=== PATIENT | male | born 1980 | race Caucasian/White ===

== ENCOUNTER 2019-05-01 21:52 | Emergency (ER) | payer BC, OTHER ==
[2019-05-01] MEDS ORDERED: Bacitracin 1 PK ONE (22:37)
[2019-05-01] MEDS ORDERED: Cephalexin 250 MG CAP ONE (22:43)
== END 2019-05-01 22:45 | disposition home or self-care (01) ==
LOC: BURERS 21:52
DX: S81.012A Laceration without foreign body, left knee, initial encounter (principal); W17.89XA Other fall from one level to another, initial encounter
CPT/HCPCS: 12002

== ENCOUNTER 2020-08-27 23:37 | Emergency (ER) | payer BC ==
[2020-08-28 00:16] LABS: #Basophils 0.1 thou/uL (0.0-0.2); #Eosinphils 0.5 thou/uL (0.0-0.7); #Lymphocytes 2.2 thou/uL (1.20-3.40); #Monocytes 0.8 thou/uL (0.11-0.59); #Neutrophils 3.9 thou/uL (1.40-6.50); %Eosinophils 6.2 % (0.0-10.0); %Lymphocytes 29.5 % (21.0-51.0); %Monocytes 10.9 % (0.0-10.0); %Neutrophils 52.4 % (42.0-75.0); Hemoglobin 14.9 g/dL (14.0-18.0); Mean Corpuscular HGB CONC 33.1 g/dL (32.0-36.0); Mean Corpuscular Volume 87.7 fL (78.0-98.0); Mean Platelet Volume 10.8 fL (7.4-10.4); Platelet Count 201 thou/uL (130-400); RBC Distribution Width 11.7 % (11.5-14.5); Red Blood Cell (RBC) Count 5.13 mill/uL (4.70-6.10); White Blood Cell (WBC) Count 7.4 thou/uL (4.8-10.8)
[2020-08-28 00:30] LABS: ALT (SGPT) 63 U/L (8-55); AST (SGOT) 28 U/L (5-34); Albumin 4.2 g/dL (3.5-5.0); Alkaline Phosphatase 61 U/L (40-110); Anion Gap 14 mmol/L (10-20); BUN (Urea Nitrogen) 12 mg/dL (8.9-20.6); Bilirubin, Total 0.3 mg/dL (0.2-1.2); Calc. Creatinine Clearance 0 mL/min (70-130); Calcium 9.2 mg/dL (7.8-10.44); Carbon Dioxide 24 mmol/L (22-29); Chloride 106 mmol/L (98-107); Globulin 3.3 g/dL (2.4-3.5); Glucose 110 mg/dL (70-105); Potassium 3.9 mmol/L (3.5-5.1); Protein, Total 7.5 g/dL (6.0-8.3); Sodium 140 mmol/L (136-145)
== END 2020-08-28 00:59 | disposition home or self-care (01) ==
LOC: BURERS 23:37
DX: R07.89 Other chest pain (principal); I25.2 Old myocardial infarction; F17.220 Nicotine dependence, chewing tobacco, uncomplicated
CPT/HCPCS: 36415; 71045; 80053; 83880; 84484; 85025; 93005